=== PATIENT | male | born 1960 | race Caucasian/White ===

== ENCOUNTER 2020-04-06 20:51 | Emergency (ER) | payer OTHER ==
[~2020-04-06] VITALS: Ht 182.9 cm; Wt 112.7 kg
[2020-04-06] MEDS ORDERED: LEVOTHYROXIN0.088 MG PO (21:14)
[2020-04-06] MEDS ORDERED: ALLOPURINOL300 M1 PO (21:14)
[2020-04-06 22:02] LABS: EOS # 0.1 (0.04-0.40); EOS % 1.7 % (0.0-4.0); MEAN CELL VOLUME 87 fl (78-100); MEAN CORPUSCULAR HEMOGLOBIN 31 pg (27-31); MEAN CORPUSCULAR HGB CONC 36 g/dL (33-37); MEAN PLATELET VOLUME 10.4 fl (7.4-10.4); NEU # 4.5 (1.40-6.50); PLATELET COUNT 144 K/mm3 (130-400); RED BLOOD COUNT 5.19 M/mm3 (4.20-5.60); RED CELL DISTRIBUTION WIDTH 13.2 % (11.5-14.5); WHITE BLOOD COUNT 5.3 K/mm3 (4.8-10.8)
[2020-04-06 22:03] LABS: LYMPH# 0.6 (1.50-4.00)
[2020-04-06 22:04] LABS: ALBUMIN 3.5 g/dL (3.4-4.8); POTASSIUM 4.4 mmol/L (3.5-5.1)
[2020-04-06 22:05] LABS: CALCIUM 8.7 mg/dL (8.3-10.5)
[2020-04-06 22:18] LABS: BAND 6 % (0-10); LYMPHOCYTE 15 % (20-51); NEUTROPHILS 77 % (42-75)
[2020-04-06 22:38] LABS: URINE APPEARANCE CLOUDY; URINE COLOR YELLOW
[2020-04-06 22:39] LABS: URINE BILIRUBIN NEGATIVE (NEGATIVE); URINE BLOOD TRACE (NEGATIVE); URINE GLUCOSE NEGATIVE (NEGATIVE); URINE KETONE NEGATIVE (NEGATIVE); URINE LEUKOCYTE ESTERASE NEGATIVE (NEGATIVE); URINE MUCUS PRESENT (NOT PRESENT); URINE NITRATE NEGATIVE (NEGATIVE); URINE PROTEIN(semi-quant) 3+ mg/dL (NEGATIVE); URINE UROBILINOGEN NORMAL (NORMAL)
[2020-04-07 03:22] VITALS: BP 109/61
== END 2020-04-07 04:38 | disposition short-term general hospital (02) ==
LOC: ED 20:51
PROVIDERS: Family Medicine
DX: K37 Unspecified appendicitis (principal); N18.9 Chronic kidney disease, unspecified
CPT/HCPCS: J1885; J2543; J7030